=== PATIENT | male | born 1970 | race Two or more races ===

== ENCOUNTER 2023-06-23 12:09 | Emergency (ER) | payer BC, OTHER ==
[~2023-06-23] VITALS: Ht 177.8 cm; Wt 104.5 kg
[2023-06-23 13:16] VITALS: BP 165/93; PULSE 73; RESP 17; TEMP 97.2; O2SAT 98
[2023-06-23 14:10] LABS: Urine Bacteria NONE SEEN /hpf (None Seen); Urine Blood Negative /uL (Negative); Urine Clarity HAZY (Clear); Urine Color Yellow (Yellow); Urine Protein, UAD Negative (Negative); Urine Specific Gravity 1.022 (1.001-1.035); Urine Urobilinogen Normal (Negative); Urine WBC 39 /hpf (0 - 3); Urine pH 8.5 (5.0-8.0)
[2023-06-23] MEDS ORDERED: IBUP1TAB5 PO (14:50)
[2023-06-23] MEDS ORDERED: CYCL-839 PO (14:50)
== END 2023-06-23 14:54 | disposition home or self-care (01) ==
LOC: ER 12:09
DX: K76.0 Fatty (change of) liver, not elsewhere classified (principal); R10.9 Unspecified abdominal pain; I10 Essential (primary) hypertension
CPT/HCPCS: 74176; 76705; 81001; 93005